=== PATIENT | male | born 1980 | race Hispanic/Latino ===

== ENCOUNTER 2017-02-10 14:51 | Emergency (ER) | payer SELFPAY ==
[2017-02-10] MEDS ORDERED: Acetaminophen/Codeine 30-300mg Tablet ONE (15:18)
[2017-02-10] MEDS ORDERED: Ketorolac Tromethamine 60 MG/2 ML VIAL ONE (15:18)
[2017-02-10] MEDS ORDERED: Ondansetron ODT 4 MG TAB ONE (15:18)
== END 2017-02-10 16:22 | disposition home or self-care (01) ==
LOC: MADERS 14:51
DX: J20.9 Acute bronchitis, unspecified (principal); F17.210 Nicotine dependence, cigarettes, uncomplicated
CPT/HCPCS: 96372; J1885; Q0162